=== PATIENT | female | born 1980 | race Caucasian/White ===

== ENCOUNTER 2024-12-06 07:43 | Outpatient (CLI) | payer OTHER, SELFPAY ==
--- NOTE | ~2024-12-06 | MR_ITS ---
EXAMINATION: MR knee RT wo con DATE: 12/06/2024 08:12 INDICATION: Chronic right knee pain TECHNIQUE: Magnetic resonance imaging (MRI) of the right knee was performed without intravenous contr ast. Sequences included coronal PD-weighted FSE, coronal PD-weighted FS FSE, sagittal T2-weighted FS E, sagittal PD-weighted FS FSE and axial PD weighted fat saturated FSE. COMPARISON: None. FINDINGS: Medial compartment: Medial meniscus is normal. Deep chondral fissuring without degenerative subchondral changes along the anterior to central weightbearing medial femoral condyle. Cartilage along the medial tibial plateau is normal. Lateral compartment: Lateral meniscus is normal. Partial-thickness cartilage loss involving less than 50% of the cartilage thickness and with relatively smooth chondral surface along the medial margin of the anterior weight bearing lateral femoral condyle. Small shallow chondral fissure at the posterior weightbearing latera l femoral condyle. Patellofemoral compartment: Deep chondral fissuring without degenerative subchondral changes at the inferior aspect of the medial patellar facet and apical ridge. Partial-thickness chondral ulceration along the medial side of the lateral trochlea and trochlear groove with deeper ulceration and fissuring without degenerative subch ondral changes at the medial trochlea. Ligaments and tendons: Anterior and posterior cruciate ligaments are normal. The medial collateral ligament and fibular janett ateral ligament complex are normal. The extensor mechanism is normal. The visualized medial and later al hamstring tendons as well as the iliotibial band are normal. Fluid: Small knee joint effusion at the suprapatellar pouch. No loose osteochondral bodies identified. Very small Alas's cyst. Osseous/other: Normal marrow signal. No fracture or pathologic marrow replacing process. IMPRESSION: 1. 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 Reviewed, dictated and finalized at location A. IMPRESSION: 1. Mild tricompartmental osteoarthritis with moderate grade chondromalacia in a ll 3 compartments.
== END 2024-12-06 07:44 | disposition home or self-care (01) ==
PROVIDERS: PCP Nurse Practitioner Family; Visit Provider Nurse Practitioner Family
DX: M25.561 Pain in right knee (principal); G89.29 Other chronic pain
CPT/HCPCS: 73721